=== PATIENT | female | born 1995 | race Caucasian/White ===

== ENCOUNTER 2017-07-25 07:30 | Emergency (ER) | payer OTHER ==
[2017-07-25 07:50] VITALS: BP 93/67; PULSE 73; TEMP 99.4; BMI 19.5
[2017-07-25] MEDS ORDERED: ALBUTEROL SO4 2.5/IPRATROPIUM 0.5 INH SOL 3 ML VIAL.NEB. NEB ONE ×2 (08:20→08:23)
[2017-07-25] MEDS ORDERED: IBUPROFEN 400 MG TABLET (FP) PO ONE ×2 (08:20→08:23)
--- NOTE | 2017-07-25 08:20 | PDOC ---
History of Present Illness - General Chief Complaint: Cold Symptoms Stated Complaint: COLD SYMPTOMS Time Seen by Provider: 07/25/17 08:07 History Source: Patient Exam Limitations: No Limitations - History of Present Illness Initial Comments: 07/25/17 08:57 Came for evaluation of chronic cough and cold symptoms 3-4 weeks. Denies fever , denies phlegm production, but states has mild headache from coughing and feels last night became mildly worse. Has used [id number] medications with some mild relief, Marijuana smoker, Timing/Duration: reports: intermittent Severity: reports: mild, moderate Past History - Travel Traveled outside of the country in the last 30 days: No Close contact w/someone who was outside of country & ill: No - Past Medical History Allergies/Adverse Reactions: Allergies Allergy/AdvReac Type Severity Reaction Status Date / Time No Known Allergies Allergy Verified 07/25/17 07:46 Home Medications: Ambulatory Orders Albuterol Sulfate Inhaler - [Ventolin HFA Inhaler -] 1 - 2 inh PO Q4H #1 inhaler 07/25/17 COPD: No Other medical history: DENIES. - Surgical History Appendectomy: Yes - Suicide/Smoking/Psychosocial Hx Smoking Status: No Smoking History: Never smoked Have you smoked in the past 12 months: No Number of Cigarettes Smoked Daily: 0 Information on smoking cessation initiated: No 'Breaking Loose' booklet given: 08/21/12 Hx Alcohol Use: Yes (SOCIAL) Drug/Substance Use Hx: No Substance Use Type: None Hx Substance Use Treatment: No Review of Systems - Review of Systems Able to Perform ROS?: Yes Is the patient limited [place]ian proficient: Yes Constitutional: Yes: Symptoms Reported, See HPI, Malaise. No: Fever HEENTM: Yes: See HPI, Nose Congestion. No: Symptoms Reported Respiratory: Yes: Symptoms reported, See HPI, Cough. No: Orthopnea, Wheezing ABD/GI: No: Symptoms Reported All Other Systems: Reviewed and Negative *Physical Exam - Vital Signs Last Vital Signs Temp Pulse Resp BP Pulse Ox 99.4 F 73 19 93/67 100 07/25/17 07:46 07/25/17 07:46 07/25/17 07:46 07/25/17 07:46 07/25/17 07:46 - Physical Exam General Appearance: Yes: Nourished, Appropriately Dressed, Mild Distress HEENT: positive: SUHAIL, TMs Normal (congested but landmarks easily visualized), Pharynx Normal (cobblestone appearance with some posterior sinus drainage noted) . negative: Rhinorrhea Neck: positive: Supple. negative: Lymphadenopathy (R), Lymphadenopathy (L) Respiratory/Chest: positive: Lungs Clear (no wheezing or retractions) Cardiovascular: positive: Regular Rhythm Gastrointestinal/Abdominal: positive: Tender, Soft Musculoskeletal: positive: Normal Inspection Extremity: positive: Normal Capillary Refill, Normal Inspection, Normal Range of Motion Integumentary: positive: Dry, Warm, Pale. negative: Normal Color Progress Note - Progress Note Progress Note: ALLERGIC rhinitis, postnasal drip causing cough. We'll treat with DuoNeb 1 dose of steroids and encouraged antihistamine use and smoking cessation Medical Decision Making - Medical Decision Making 07/25/17 12:58 Much improved after DuoNeb, we'll continue course of antihistamines , steroids, and albuterol pump *DC/Admit/Observation/Transfer Diagnosis at time of Disposition: Allergic rhinitis Qualifiers: Allergic rhinitis trigger: unspecified Allergic rhinitis seasonality: unspecified seasonality Qualified Code(s): J30.9 - Allergic rhinitis, unspecified - Discharge Dispostion Disposition: HOME Condition at time of disposition: Stable Admit: No - Prescriptions Prescriptions: Albuterol Sulfate Inhaler - [Ventolin HFA Inhaler -] 1 - 2 inh PO Q4H #1 inhaler - Referrals - Patient Instructions Printed Discharge Instructions: DI for Allergic Rhinitis Additional Instructions: Rest, drink lots of fluids: Teas, water, soups Saltwater gargles. Consider humidifier in room at night Steamy showers/seem to face break up mucus Avoid contact with allergens, exposure to pollens, close windows on a windy day Lots of handwashing and good hygiene Continue [id number] medications for symptomatic relief- may use allergic eyedrops for itching I Continue antihistamines daily until pollen season is over; Zyrtec, Claritin, Nevin during the daytime and Benadryl at nighttime as will make sleepy Tylenol or Motrin for fever and pain Continue using albuterol, 2 puffs 4 times a day for the next few days then as needed You were given 10 mg of Decadron today Followup with private physician in one to 2 days as needed Consider following up with an purchasing agent/movie shot camera operator for skin testing and possible allergy shots Return to emergency department for worsened symptoms, fevers, dehydration - Post Discharge Activity Forms/Work/School Notes: Back to Work
[2017-07-25] MEDS ORDERED: DEXAMETHASONE SOD PHOSPHATE 10 MG/1 ML VIAL IM ONE (08:21)
[2017-07-25] MEDS ORDERED: DEXAMETHASONE SOD PHOSPHATE 10 MG/1 ML VIAL ONE (08:23)
== END 2017-07-25 09:03 | disposition home or self-care (01) ==
LOC: JER 07:30 → JERFT 07:30
DX: J30.9 Allergic rhinitis, unspecified (principal)
CPT/HCPCS: 99281-25; J1100

== ENCOUNTER 2018-04-24 09:38 | Emergency (ER) | payer OTHER ==
[2018-04-24 09:54] VITALS: BP 106/55; PULSE 72; TEMP 98.1; BMI 19.5
--- NOTE | 2018-04-24 10:17 | PDOC ---
History of Present Illness - General Chief Complaint: Eye Problem Stated Complaint: EYE PROBLEM Time Seen by Provider: 04/24/18 09:56 History Source: Patient Exam Limitations: No Limitations - History of Present Illness Initial Comments: CHIEF COMPLAINT: 22 y/o afebrile female c/o right eye irritation after trauma to it yesterday. HISTORY OF PRESENT ILLNESS: Patient states she was accidentally poked in the right eye with a fork at work yesterday. She states her eye feels really irritated now and slightly swollen. She does wear glasses and contacts but is wearing neither right now. Vital signs on arrival are notable for BP of 106/55. REVIEW OF SYSTEMS: GENERAL/CONSTITUTIONAL: No fever/chills. No weakness. No weight change. HEAD, EYES, EARS, NOSE AND THROAT: +blurry vision to right eye. +right eye irritation and swelling. No ear pain or discharge. No sore throat. MUSCULOSKELETAL: No joint or muscle swelling or pain. No neck or back pain. NEUROLOGIC: No headache, vertigo, loss of consciousness, or loss of sensation. PHYSICAL EXAM: GENERAL: The patient is awake, alert, and fully oriented, in no acute distress. HEAD: Normal with no signs of trauma. ENT: Pupils equal, round and reactive to light, extraocular movements intact, sclera anicteric. Right conjunctiva injected. No entrapment. Mild swelling to right upper and lower lid. No proptosis or ptosis. Fluorescein stain reveals corneal abrasions at 10 o'clock and 5 o'clock SNELLEN: (R) 20/25 (L) 20/20 (B) 20/20 NEUROLOGICAL: Normal speech, normal gait. CN II-XII grossly intact. Past History - Past Medical History Allergies/Adverse Reactions: Allergies Allergy/AdvReac Type Severity Reaction Status Date / Time No Known Allergies Allergy Verified 04/24/18 09:54 Home Medications: Ambulatory Orders Erythromycin 0.5% Eye Ointment [Erythromycin 0.5% Eye Ointment -] 1 applic OD TID #1 tube 04/24/18 COPD: No - Surgical History Appendectomy: Yes - Suicide/Smoking/Psychosocial Hx Smoking Status: No Smoking History: Never smoked Have you smoked in the past 12 months: No Number of Cigarettes Smoked Daily: 0 'Breaking Loose' booklet given: 08/21/12 Hx Alcohol Use: Yes (SOCIAL) Drug/Substance Use Hx: No Substance Use Type: None Hx Substance Use Treatment: No *Physical Exam - Vital Signs Last Vital Signs Temp Pulse Resp BP Pulse Ox 98.1 F 72 18 106/55 L 100 04/24/18 09:47 04/24/18 09:47 04/24/18 09:47 04/24/18 09:47 04/24/18 09:47 Medical Decision Making - Medical Decision Making A/P: 22 y/o with 2 corneal abrasions s/p getting accidentally stabbed in right eye with fork yesterday. Vision is ok. Will send rx for erythromycin ointment and told her to call ophtho tomorrow and schedule follow up appointment. Instructed patient not to wear contact lenses until seen by ophtho. The patient verbalizes understanding of all instructions, has no further questions and is awaiting discharge. *DC/Admit/Observation/Transfer Diagnosis at time of Disposition: Corneal abrasion Qualifiers: Encounter type: initial encounter Laterality: right Qualified Code(s): S05.01XA - Injury of conjunctiva and corneal abrasion without foreign body, right eye, initial encounter - Discharge Dispostion Disposition: HOME Condition at time of disposition: Good - Referrals Referrals: Rhonda Villa MD [Staff Physician] - Call tomorrow - Patient Instructions Printed Discharge Instructions: DI for Corneal Abrasion Additional Instructions: Discharge Instructions: -You have 2 corneal abrasions on your right eye -A prescription for eye ointment has been sent to your pharmacy; please use as prescribed for 7 days -Please call the referred Belt Maker tomorrow morning to schedule an appointment for JOSELITO -Do not use contact lenses until seen by an eye doctor -Apply cool compress to eye to help with swelling. - Post Discharge Activity
== END 2018-04-24 10:35 | disposition home or self-care (01) ==
LOC: JERFT 09:38
DX: S05.01XA Injury of conjunctiva and corneal abrasion without foreign body, right eye, initial encounter (principal); W27.4XXA Contact with kitchen utensil, initial encounter; Y93.89 Activity, other specified; Y92.89 Other specified places as the place of occurrence of the external cause; Y99.0 Civilian activity done for income or pay
CPT/HCPCS: 99281-25

== ENCOUNTER 2020-11-17 11:00 | Emergency (ER) | payer OTHER ==
[2020-11-17 11:06] VITALS: BP 96/62; PULSE 78; TEMP 97.8; BMI 18.4
[2020-11-17 12:27] LABS: EPI CELLS >36 /uL (0-25.1); HYALINE CASTS 4 /uL (0-3.1); PH,URINE 5.5 (5.0-8.0); URINE APPEARANCE CLEAR; URINE BACTERIA 1727 /uL (0-1359); URINE BILIRUBIN NEGATIVE (NEGATIVE); URINE COLOR YELLOW; URINE GLUCOSE (UA) NEGATIVE (NEGATIVE); URINE KETONE 2+ (NEGATIVE); URINE LEUK ESTERASE TRACE (NEGATIVE); URINE NITRITE NEGATIVE (NEGATIVE); URINE PROTEIN NEGATIVE (NEGATIVE); URINE RBC 18 /uL (0-23.9); URINE UROBILINOGEN 0.2 mg/dL (0.2-1.0); URINE WBC 28 /uL (0-25.8)
== END 2020-11-17 14:10 | disposition home or self-care (01) ==
LOC: JER 11:00
DX: N93.9 Abnormal uterine and vaginal bleeding, unspecified (principal); N83.201 Unspecified ovarian cyst, right side
CPT/HCPCS: 76830-TC; 81003; 84703; 99284-25